=== PATIENT | male | born 2000 | race Caucasian/White ===

== ENCOUNTER 2022-07-11 12:49 | Emergency (ER) | payer BC, OTHER ==
[~2022-07-11] VITALS: Ht 190.5 cm; Wt 118.0 kg
[2022-07-11 12:49] VITALS: BP 150/84
[2022-07-11] MEDS ORDERED: TETANUS,DIPTH,PERTUSS P/F (BOOSTRIX) 0.5 ML VIAL IM ONE (13:15)
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
== END 2022-07-11 13:21 | disposition home or self-care (01) ==
LOC: ER FS 12:51
DX: S09.90XA Unspecified injury of head, initial encounter (principal); S01.01XA Laceration without foreign body of scalp, initial encounter; F17.210 Nicotine dependence, cigarettes, uncomplicated; Z23 Encounter for immunization; Z28.310 Unvaccinated for COVID-19; W18.30XA Fall on same level, unspecified, initial encounter; W22.8XXA Striking against or struck by other objects, initial encounter
CPT/HCPCS: 90715; 99284

== ENCOUNTER 2022-07-18 15:47 | Emergency (ER) | payer BC ==
[2022-07-18 15:57] VITALS: BP 123/73
== END 2022-07-18 15:59 | disposition home or self-care (01) ==
LOC: EDUNIT# 15:47 → ER FS 15:48
DX: Z48.02 Encounter for removal of sutures (principal)